=== PATIENT | male | born 1975 | race American Indian/Alaskan Native ===

== ENCOUNTER 2018-02-09 09:45 | Emergency (ER) | payer OTHER ==
[2018-02-09] MEDS ORDERED: MOTRIN PO ONE (12:34)
[2018-02-09] MEDS ORDERED: TRIPLE ANTIBIOTIC TP ONE (12:42)
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
--- NOTE | 2018-02-09 14:55 | XRay Report ---
LEFT ELBOW, 3 views: History: left elbow pain. The bony architecture is intact without evidence of fracture or dislocation. No significant soft tissue abnormality is seen. IMPRESSION: Normal left elbow.
--- NOTE | 2018-02-09 14:56 | XRay Report ---
LEFT FOREARM: History: Pain. Injury. AP and lateral views of the forearm demonstrate normal mineralization and contours for this patient's age. No destructive changes are noted and the adjacent soft tissues are normal. IMPRESSION: Normal left forearm.
--- NOTE | 2018-02-09 14:57 | XRay Report ---
BILATERAL HANDS, 3 VIEWS History: Pain. Findings: Normal bone mineralization. No acute osseous injury or joint pathology is identified. The soft tissues are unremarkable. Impression: Unremarkable bilateral hands.
[2018-02-09 15:25] VITALS: BP 125/80
== END 2018-02-09 15:26 | disposition home or self-care (01) ==
LOC: ED 09:45
DX: S56.912A Strain of unspecified muscles, fascia and tendons at forearm level, left arm, initial encounter (principal); S66.911A Strain of unspecified muscle, fascia and tendon at wrist and hand level, right hand, initial encounter; J45.909 Unspecified asthma, uncomplicated; F17.200 Nicotine dependence, unspecified, uncomplicated; V49.49XA Driver injured in collision with other motor vehicles in traffic accident, initial encounter; Y93.89 Activity, other specified; Y92.89 Other specified places as the place of occurrence of the external cause; Y99.8 Other external cause status
CPT/HCPCS: A6250